=== PATIENT | female | born 1960 | race Caucasian/White ===

== ENCOUNTER → 2021-03-17 | Outpatient (CLI) | payer BC | LOC: KOH-I 14:46 | DX: M25.552 Pain in left hip (principal); M54.50 Low back pain, unspecified; M47.816 Spondylosis without myelopathy or radiculopathy, lumbar region | CPT/HCPCS: 72100; 73502 ==

== ENCOUNTER 2021-04-26 12:32 | Emergency (ER) | payer BC ==
[2021-04-26 13:30] LABS: RED BLOOD COUNT 3.99 M/UL (4.00-5.10); WHITE BLOOD COUNT 4.8 K/UL (4.5-11.0)
[2021-04-26 13:49] LABS: BUN/CREATININE RATIO 17 (0-10)
[2021-04-26] MEDS ORDERED: ZOFRAN ODT 4 MG4 MG PO (18:12)
[2021-04-26] MEDS ORDERED: TAMIFLU 75 MG C75 MG PO (18:12)
== END 2021-04-26 18:39 | disposition home or self-care (01) ==
LOC: ER1 12:32
PROVIDERS: Emergency Medicine
DX: J10.1 Influenza due to other identified influenza virus with other respiratory manifestations (principal); E11.9 Type 2 diabetes mellitus without complications; E83.42 Hypomagnesemia; K76.0 Fatty (change of) liver, not elsewhere classified; Z20.822 Contact with and (suspected) exposure to COVID-19
CPT/HCPCS: 0240U; 71045; 71260; 80053; 81001; 82550; 82553; 82962; 83690; 83735; 83874; 84484; 85025; 85610; 85730; 93005; 96374; 96375; 99285; J2270; J2405; J3475; Q9967